=== PATIENT | male | born 1980 | race Caucasian/White ===

== ENCOUNTER 2017-03-23 03:19 | Emergency (ER) | payer OTHER ==
--- NOTE | ~2017-03-23 | CT71 ---
[facility] A Service of [facility] RADIOLOGY TEXT RESULTS PATIENT: VLADIMIR TREVINO LOCATION: [facility] : 84 UNIT #: [id number] AGE: [address]: Noah Hampton MD SEX: M ORDER DR: [id number] [facility] [address] [place], [place] [address] [id number] MR#: [id number] Acc #: [id number] NAME: VLADIMIR TREVINO : 1980 SEX: M STUDY DATE/TIME: 03/23/2017 05:17 UNIT: [facility] ROOM: STUDY DESCRIPTION: CT Head Wo Contrast Attending Physician: Noah Hampton M.D. Ordering Physician: Abbi Riddle A.P.R.N. Primary Care Physician: Primary Care Physician No MEDICAL IMAGING REPORT This report is preliminary unless electronic signature is present EXAM Head CT 03/23 at 05:17 INDICATIONS Headache, dizziness today after heroin overdose. Axial images were obtained from base to vertex without contrast. compared made with 04/19/2016. This CT exam was performed with one or more of the following radiation dose reduction techniques: automatic exposure control, adjustment of mA and/or kV according to patient size, and iterative reconstruction. FINDINGS Ventricular size and configuration are within normal limits. Redemonstrated is some encephalomalacia in the frontal lobes as well as in the right temporal lobe. This is unchanged. No acute infarct or hemorrhage. No masses. No skull fracture. IMPRESSION No acute findings in the brain. No change from prior. Dictated by... Frakno Skinner Jr., M.D. THIS IS AN ELECTRONICALLY VERIFIED REPORT Franko Skinner Jr., M.D. at 03/23/2017 10:14 PM MANDEEP/tamra TD: 03/23/2017 07:15 JOB #: [id number] MEDICAL IMAGING REPORT [facility] A Service of [facility] RADIOLOGY TEXT RESULTS PATIENT: VLADIMIR TREVINO LOCATION: [facility] : 84 UNIT #: [id number] AGE: [address]: Noah Hampton MD SEX: M ORDER DR: Page 1 of 1 COPY
[~2017-03-23 03:19] MED LIST: ACETAMINOPHEN325 MG PO; COMPAZINE10 M2 PO; DEPAKOTE PO; DILANTIN PO; ERYC250 MG PO; FLEXERIL PO; GABAPENTIN300 M2 PO; HUMALOG100 U/M2 SUBQ; HUMALOG100 U/ML SUBQ; HYDROCODON-ACE1 EAC9; IMITREX25 MG PO; KETOPROFEN PO; LANTUS SOLOSTAR3 ML SUBQ; LANTUS100 U/ML SUBQ; LEVAQUIN PO; LIPITOR PO; LIPITOR20 MG PO; LISINOPRIL PO; LODINE PO; MAGNESIUM400 MG PO; METFORMIN PO; MEVACOR PO; MOBIC PO; NEURONTIN300 MG; NEURONTIN300 MG PO; NORCO 5/325 TAB1 TAB; PERCOCET5/325; PERCOCET5/325 PO; PHENERGAN25 M1 PO; PRILOSEC20 MG; PROTONIX PO; REGLAN10 MG PO; SUBOXONE 2 MG-1 EAC1 SL; SUBOXONE 8 MG-1 EAC1 SL; TYLOX 5/500 CAP1 CAP PO; ZOFRAN ODT4 MG PO; ZOFRAN PO; ZOVIRAX800 MG
[2017-03-23 05:31] LABS: BASOPHIL# 0.1 X10e3 (0-0.3); BASOPHIL% 0.4 % (0-2.5); EOSINOPHIL% 0.4 % (0.0-7.0); HEMATOCRIT 46.8 % (38.0-50.0); HEMOGLOBIN 15.5 gm/dL (13.0-16.0); LYMPHOCYTE# 1.2 X10e3 (1.0-3.5); LYMPHOCYTE% 9.7 % (17.0-45.0); MEAN CELL VOLUME 89.9 FL (83-96); MEAN CORPUSCULAR HEMOGLOBIN 29.8 PG (28-34); MEAN CORPUSCULAR HGB CONC 33.2 g/dL (30-36); MEAN PLATELET VOLUME 8.7 FL (6.5-11.5); MONOCYTE# 0.9 X10e3 (0-1.0); MONOCYTE% 7.4 % (3.0-12.0); NEUTROPHIL# 10.2 X10e3 (1.5-7.1); NEUTROPHIL% 82.1 % (40-75); PLATELET COUNT 198 X10e3 (140-420); RED CELL DISTRIBUTION WIDTH 13.3 % (11.0-15.5); WHITE BLOOD COUNT 12.4 X10e3 (4.0-10.5)
[2017-03-23 05:34] LABS: DIFF IND NO
[2017-03-23 06:24] LABS: ALBUMIN SERUM 4.2 g/dL (3.5-5.0); ALKALINE PHOSPHATASE 96 U/L (32-92); ALT (SGPT) 103 U/L (10-40); AST (SGOT) 197 U/L (10-42); BILIRUBIN, DIRECT 0.2 mg/dL (0.0-0.2); BILIRUBIN,TOTAL 0.2 mg/dL (0.2-2.0); BLOOD UREA NITROGEN 8 mg/dL (9-23); CALCIUM SERUM 9.1 mg/dL (8.4-10.2); CARBON DIOXIDE 28 mmol/L (22-31); CHLORIDE 102 mmol/L (100-111); GLOM FILT RATE Estimated 97.8 mL/min (>60); GLUCOSE FASTING 165 mg/dL (70-110); POTASSIUM 4.3 mmol/L (3.5-5.1); PROTEIN TOTAL SERUM 6.8 g/dL (6.0-8.3); SALICYLATE <4.0 mg/dL; SODIUM 140 mmol/L (135-145)
[2017-03-23 06:27] LABS: ACETAMINOPHEN <10 ug/mL; ALCOHOL BLOOD <5 mg/dL (0)
[2017-03-23 07:10] LABS: URINE SOURCE CLEAN CATCH
[2017-03-23 07:30] LABS: URINE APPEARANCE CLEAR; URINE BLOOD NEG (NEG); URINE COLOR DK YELLOW; URINE GLUCOSE >1000 MG/DL (NEG); URINE KETONE NEG (NEG); URINE LEUKOCYTE ESTERASE NEG (NEG); URINE NITRATE NEG (NEG); URINE PROTEIN 3+ (NEG); URINE SPECIFIC GRAVITY 1.025 (1.003-1.035)
[2017-03-23 07:32] LABS: URBCS1 AUWI 0-2 /[HPF] (0-2); URINE BACTERIA AUWI NEG (NEGATIVE); URINE SQUAMOUS EPITHELIAL CELL FEW /[HPF]
[2017-03-23 07:48] LABS: URINE BILIRUBIN NEG (NEG); URINE MUCUS PRESENT
[2017-03-23 07:49] LABS: CULTURE INDICATED? NO
[2017-03-23 08:01] LABS: AMPHETAMINE POS (NEG); BARBITURATES NEG (NEG); BENZODIAZEPINES NEG (NEG); COCAINE NEG (NEG); MARIJUANA NEG (NEG); OPIATES POS (NEG); TRICYCLIC ANTIDEPRESSANTS NEG (NEG); U METHADONE NEG (NEG)
== END 2017-03-23 09:45 | disposition home or self-care (01) ==
LOC: CED 03:19
PROVIDERS: Nurse Practitioner
DX: T40.1X1A Poisoning by heroin, accidental (unintentional), initial encounter (principal); F32.9 Major depressive disorder, single episode, unspecified; F17.200 Nicotine dependence, unspecified, uncomplicated; Z88.0 Allergy status to penicillin; Z88.5 Allergy status to narcotic agent; Z79.899 Other long term (current) drug therapy; Z88.8 Allergy status to other drugs, medicaments and biological substances; Z79.4 Long term (current) use of insulin
CPT/HCPCS: 36415; 70450; 80048; 80076; 80307; 81003; 82947; 85025; 96361; 96374; 99284; G0480